=== PATIENT | female | born 1975 | race Caucasian/White ===

== ENCOUNTER → 2019-03-08 | Day surgery (SDC) | payer BC ==
[~2019-03-08] MED LIST: BALANCED SALT SOLN (OPTH) 15 ML BTL IO ONE; LIDOCAINE 2%/ EPINEPHRINE 20ML MDV ONE; LIDOCAINE HCL 2% LOCAL INJ 5 ML SDV VIAL INJ ONE; LISINOPRIL HCTZ PO; MIDAZOLAM HCL 2 MG/2 ML VIAL ONE; NEOMYCIN/POLYMYXIN/DEX (OPTH) 3.5 GM TUBE ONE; POVIDONE IODINE 5% (OPTH) 30 ML BTL ONE; PROPOFOL IV EMULSION 10 MG/ML 20 ML VIAL ONE
--- OUTSIDE RECORDS SUMMARY | 2019-03-08 12:51 | XMS REPORT | Clinical Summary ---
Author Author [facility] Organization [facility] Address Unknown Phone Unavailable Care Team Providers Care Generation Technologist Name Role Phone Shania Mc PCP Allergies Comments Active Allergy Reactions Severity Noted Date Can not take due to kidney disease Aspirin Other (See 12/27/2015 Comments) Medications End Date Status Medication Sig Dispensed Refills Start Date Active lisinopril TAKE 1 TABLET 90 tablet 1 (PRINIVIL,ZESTRIL) 10 mg BY MOUTH ONCE 9 tablet DAILY 03/06/2020 Active lisinopril-hydrochlorothi Take 1 tablet 30 tablet 11 azide by mouth 9 (PRINZIDE,ZESTORETIC) daily. 10-12.5 mg per tabletIndications: Essential hypertension 03/07/2019 Discontinued sodium,potassium,mag Take 1 kit by 354 mL 0 sulfates 17.5-3.13-1.6 mouth daily. 6 gram recon soln 03/07/2019 Discontinued cyanocobalamin 1,000 Inject 1 mL 10 mL 1 mcg/mL injection (1,000 mcg 8 total) into the shoulder, thigh, or buttocks every 30 (thirty) days. 10/27/2018 Discontinued lisinopril TAKE ONE 90 tablet 1 (PRINIVIL,ZESTRIL) 10 mg TABLET BY 8 tablet MOUTH ONCE DAILY 03/07/2019 Discontinued VITAMIN D2 50,000 unit 0 capsule 8 Active Problems Problem Noted Date Iron deficiency anemia secondary to inadequate dietary iron intake 03/19/2017 Encounters Care Team Description Date Type Specialty Shania Mc PA Pre-op exam (Primary Dx); Essential hypertension 03/07/2019 Office Visit Family Medicine Shania Mc PA Pre-op evaluation (Primary Dx) 03/02/2019 Orders Only Family Medicine Estella Jon MA Screening mammogram, encounter for (Primary Dx) 02/23/2019 Orders Only Family Medicine Shania Mc PA Vitamin B deficiency (Primary Dx) 01/27/2019 Orders Only Family Shania Cabrera PA 10/27/2018 Refill Family Medicine Ky Lopez FNP Annual physical exam (Primary Dx) 06/14/2018 Office Visit Family Medicine after 03/07/2018 Family History Medical History Relation Name Comments Diabetes Father Hypertension Father Kidney disease Father Cancer Maternal Grandmother Hypertension Mother Relation Name Status Comments Father Maternal Grandmother pancreas Mother Social History Date Tobacco Use Types Packs/Day Years Used Never Smoker Smokeless Tobacco: Never Used Alcohol Use Drinks/Week oz/Week Comments No Sex Assigned at Date Recorded Not on file Industry Job Start Date Occupation Not on file Not on file Not on file Travel End Travel History Travel Start No recent travel history available. Last Filed Vital Signs Time Taken Vital Sign Reading 03/07/2019 11:32 AM CDT Blood Pressure 119/87 03/07/2019 11:32 AM CDT Pulse 83 03/07/2019 11:32 AM CDT Temperature 36.7 C (98.1 F) 03/07/2019 11:32 AM CDT Respiratory Rate 16 03/07/2019 11:32 AM CDT Oxygen Saturation 98% - Inhaled Oxygen - Concentration 03/07/2019 11:32 AM CDT Weight 82.9 kg (182 lb 12.8 oz) 03/07/2019 11:32 AM CDT Height 167.6 cm (5' 6") 03/07/2019 11:32 AM CDT Body Mass Index 29.5 Plan of Treatment Health Maintenance Due Date Last Done Comments INFLUENZA VACCINE 03/03/2019 Procedures Comments Procedure Name Priority Date/Time Associated Diagnosis CBC WITH PLATELET AND Routine 03/04/2019 Pre-op evaluation DIFFERENTIAL 11:05 AM CDT MAMMO BREAST SCREEN Routine 03/03/2019 Screening mammogram, TOMOSYNTHESIS BILATERAL 2:49 PM CDT encounter for VITAMIN B12 LEVEL Routine 01/27/2019 2:39 PM CDT FERRITIN LEVEL Routine 01/27/2019 Iron deficiency anemia, 2:39 PM CDT unspecified iron deficiency anemia type TOTAL IRON BINDING Routine 01/27/2019 Iron deficiency anemia, CAPACITY 2:39 PM CDT unspecified iron deficiency anemia type CBC WITH PLATELET AND Routine 01/27/2019 Iron deficiency anemia, DIFFERENTIAL 2:39 PM CDT unspecified iron deficiency anemia type after 03/07/2018 Results * CBC with platelet and differential (03/04/2019 11:05 AM CDT) Only the most recent of 2 results within the time period is included. WBC 3.9 3.8 - 10.8 [facility] [place] RBC 4.15 3.80 - 5.10 [facility] [place] HGB 12.2 11.7 - 15.5 g/dL [facility] [place] HCT 36.8 35.0 - 45.0 % [facility] [place] MCV 88.7 80.0 - 100.0 fL [facility] [place] MCH 29.4 27.0 - 33.0 pg [facility] [place] MCHC 33.2 32.0 - 36.0 g/dL [facility] [place] RDW 12.3 11.0 - 15.0 % [employer] [place] Platelet count 240 140 - 400 [facility] [employer] [place] MPV 10.4 7.5 - 12.5 fL [facility] [place] Neutrophils, 2,262 1,500 - 7,800 [facility] absolute cells/[facility] [place] Lymphocytes, 1,174 850 - 3,900 cells/uL [facility] [place] Monocytes, 382 200 - 950 cells/uL [facility] [place] Eosinophils, 62 15 - 500 cells/uL [facility] [place] Basophils, 20 0 - 200 cells/uL [facility] [place] Neutrophils 58 % [employer] [place] Lymphocytes 30.1 % [facility] [place] Monocytes 9.8 % [employer] [facility] [place] Eosinophils 1.6 % [facility] [facility] [place] Basophils + RC 0.5 % [employer] [facility] [place] Specimen Blood Resulting Agency Comment Performing Organization Information: Site ID: [id number] Name: [facility] Address: [address] [place] [id number] Director: Rommel Lazo Performing Organization Address City/State/Zipcode Phone Number [facility] [address] [place] [address] [phone] * Mammo Breast Screen Tomosynthesis Bilateral (03/03/2019 2:49 PM CDT) Specimen Narrative Performed At PROCEDURE: MAMMO BREAST SCREEN TOMOSYNTHESIS BILATERAL [facility] Computer aided detection was utilized for the interpretation of the digital bilateral screening mammography with tomosynthesis. COMPARISON: Prior study dating 08/11/2017 DENSITY: There are scattered areas of fibroglandular density. There is postsurgical changes in both breast and a dystrophic calcification in the posterior aspect of the right breast at 12:00. There is no evidence of new irregular masses, architectural distortions or grouped calcifications. IMPRESSION:No mammographic evidence of malignancy. RECOMMENDATION: Comparison with physical exam and annual screening mammography. BI-RADS 2: Benign. This facility is accredited by the [place] [employer] for Mammography. A negative x-ray report should not delay biopsy if a dominant or clinically suspicious mass is present.Not all cancers are identified by x-ray. [id number] Performing Organization Address City/[facility] Centercode Phone Number [facility] [address] [place] [address] * Total iron binding capacity (01/27/2019 2:39 PM CDT) Iron level 99 40 - 190 mcg/dL [facility] [place] Iron binding 314 250 - 450 mcg/dL [facility] capacity (calc) [facility] [place] Iron saturation 32 16 - 45 % (calc) [facility] [place] Specimen Blood Narrative Performed At FASTING:YES [facility] FASTING: YES Resulting Agency Comment Performing Organization Information: Site ID: [id number] Name: [facility] Address: [address] [place] [phone] Director: Julia Batista Performing Organization Address City/State/Zipcode Phone Number [employer] [place] [address] [place] [phone] * Ferritin level (01/27/2019 2:39 PM CDT) Ferritin level 20 16 - 232 ng/mL [facility] [employer] [place] Specimen Blood Narrative Performed At FASTING:YES [facility] FASTING: YES Resulting Agency Comment Performing Organization Information: Site ID: [id number] Name: [facility] Address: [address] [place] [phone] Director: Julia Batista Performing Organization Address [facility] Centercode Phone Number [employer] [place] [address] [place] [address] [phone] * Vitamin B12 level (01/27/2019 2:39 PM CDT) Vitamin B12 280 200 - 1,100 pg/mL [facility] Comment: DIAGNOSTICS Please Note: Although the [place] reference range for vitamin B12 is 200-1100 pg/mL, it has been reported that between 5 and 10% of patients with values between 200 and 400 pg/mL may experience neuropsychiatric and hematologic abnormalities due to occult B12 deficiency; less than 1% of patients with values above 400 pg/mL will have symptoms. Specimen Narrative Performed At FASTING:YES [facility] FASTING: YES Resulting Agency Comment Performing Organization Information: Site ID: [id number] Name: [facility] Address: [address] [place] [phone] Director: Julia Batista Performing Organization Address [facility] Centercowi Phone Number [employer] [place] [address] [place] [address] [phone] after 03/07/2018 Insurance Type Payer Benefit Subscriber ID Effective Phone Address Plan / Dates Group PPO BCBS BCBS xxxxxxxxxxxx [id number] AILYN resent PPO/RADHA CADET PPO Advance Directives Patient has advance care planning documents on file. For more information, almas cowan contact: Minor Su [address] [place] [address]
[2019-03-08 16:55] VITALS: BP 109/82
== END | disposition home or self-care (01) ==
LOC: OR 12:20
PROVIDERS: ATTEND Ophthalmology
DX: H02.834 Dermatochalasis of left upper eyelid (principal); H02.831 Dermatochalasis of right upper eyelid; I10 Essential (primary) hypertension; Q61.3 Polycystic kidney, unspecified; Z88.6 Allergy status to analgesic agent
CPT/HCPCS: 15823; 81025; J2001; J2250